=== PATIENT | female | born 1990 | race African-American/Black ===

== ENCOUNTER 2016-09-28 20:03 | Emergency (ER) | payer OTHER ==
[~2016-09-28] VITALS: Ht 165.1 cm; Wt 61.6 kg
[~2016-09-28 20:03] MED LIST: ADVAIR 100/501 DISK; ADVAIR 100/501 DISK IH; ALBUTEROL SULF8.5 GM IH; ALBUTEROL17 GM IH; AMOXICILLIN500 MG PO; AMOXICILLIN875 MG PO; AUGMENTIN875 MG PO; AZITHROMYCIN250 MG PO; CITALOPRAM HBR10 MG PO; CLEOCIN150 MG PO; DAILY VALUE1 EACH PO; FLEXERIL10 MG PO; HYDROXYZINE PAM25 MG PO; KEFLEX500 MG PO; LEVAQUIN750 MG PO; LITHIUM CARBON150 MG PO; LITHIUM CARBON300 MG PO; NAPROSYN500 MG PO; NORCO 5/3251 TABLET PO; PEN-VEE K,VEET500 MG PO; PREDNISONE20 MG PO; PROAIR HFA8.5 GM IH; PROVENTIL,2.5 MG/3 M IH; ULTRAM50 MG PO; VENTOLIN HFA18 GM IH
[2016-09-28] MEDS ORDERED: MEDROL DOSEPAK4 MG PO (22:58)
[2016-09-28] MEDS ORDERED: VENTOLIN HFA18 GM IH (22:58)
[2016-09-28 23:09] VITALS: BP 118/66
== END 2016-09-28 23:09 | disposition home or self-care (01) ==
LOC: EME 20:03
DX: J20.9 Acute bronchitis, unspecified (principal); F16.10 Hallucinogen abuse, uncomplicated; F17.200 Nicotine dependence, unspecified, uncomplicated
CPT/HCPCS: 71020; 93005; 94640; 99281; 99284

== ENCOUNTER 2016-11-07 00:18 | Emergency (ER) | payer OTHER ==
[~2016-11-07] VITALS: Ht 167.6 cm; Wt 60.3 kg
[~2016-11-07 00:18] MED LIST changes: +MEDROL DOSEPAK4 MG PO
[2016-11-07 00:21] VITALS: BP 142/102
== END 2016-11-07 03:02 | disposition home or self-care (01) ==
LOC: EME 00:18
DX: S60.011A Contusion of right thumb without damage to nail, initial encounter (principal); Y04.0XXA Assault by unarmed brawl or fight, initial encounter; Z72.0 Tobacco use
CPT/HCPCS: 73130; 99281; 99283

== ENCOUNTER 2016-12-10 13:00 | Inpatient (IN) | payer OTHER ==
[~2016-12-10] VITALS: Ht 170.2 cm; Wt 65.0 kg
[2016-12-10 13:27] LABS: HEMATOCRIT 39.3 % (36.0-46.0); MCH 27.3 PG (29.0-34.0); MCHC 32.3 G/DL (30.0-36.0); MCV 84.3 FL (83-99); MEAN PLAT.VOLUME 9.2 uM^3 (9.5-12.4); PLATELET COUNT 408 K/uL (156-360); RBC DIS.WIDTH-CV 12.7 % (11.8-14.6); RBC DIS.WIDTH-SD 38.8 % (39-53); RED BLOOD COUNT 4.66 M/uL (3.80-5.20); WHITE BLOOD COUNT 5.6 K/uL (4.1-10.2)
[2016-12-10 13:35] LABS: CHLORIDE 107 mEq/L (99-109); POTASSIUM 3.7 mEq/L (3.7-5.4); SODIUM 141 mEq/L (136-147)
[2016-12-10 13:37] LABS: GLUCOSE 93 mg/dL (70-99)
[2016-12-10 13:39] LABS: ANION GAP 7 MEQ/L (2-14)
[2016-12-10 13:40] LABS: SERUM ETHYL ALCOHOL < 10 mg/dL
[2016-12-10 13:41] LABS: GFR ESTIMATE (CALCULATED) > 59 mL/min/
[2016-12-10 13:42] LABS: UREA NITROGEN (BUN) 13 mg/dL (9-23)
[2016-12-10 16:48] LABS: INTERNAL CONTROL VALID? YES
[2016-12-10 16:56] LABS: AMPHETAMINE NEGATIVE (500 ng/mL); BARBITURATES NEGATIVE (200 ng/mL); BENZODIAZEPINES NEGATIVE (150 ng/mL); COCAINE NEGATIVE (150 ng/mL); INTERNAL CONTROLS VALID? YES; METHADONE NEGATIVE (200 ng/mL); METHAMPHETAMINE NEGATIVE (500 ng/mL); OPIATES (MORPHINE) NEGATIVE (100 ng/mL); OXYCODONE NEGATIVE (100 ng/mL); PHENCYCLIDINE PRESUMPTIVE POSITIVE (25 ng/mL); PROPOXYPHENE NEGATIVE (300 ng/mL); THC CANNABINOIDS NEGATIVE (50 ng/mL); TRICYCLIC ANTIDEPRESSANTS NEGATIVE (300 ng/mL)
[2016-12-10 17:29] VITALS: BP 150/84
[2016-12-10] MEDS ORDERED: ARIPIPRAZOLE10 MG PO (17:40)
[2016-12-10] MEDS ORDERED: FLUOXETINE HCL20 MG PO (17:43)
[2016-12-10] MEDS ORDERED: LORAZEPAM0.5 MG PO (17:43)
[2016-12-10 18:22] VITALS: BP 150/84
[2016-12-11 07:27] VITALS: BP 132/60
[2016-12-11 15:49] VITALS: BP 133/60
[2016-12-12 07:52] VITALS: BP 122/74
== END 2016-12-12 12:31 | disposition home or self-care (01) | DRG 885 ==
LOC: EME 13:00 → EDOF 14:31 → 1WEST 14:31
PROVIDERS: Emergency Medicine
DX: F31.9 Bipolar disorder, unspecified (principal); R45.850 Homicidal ideations; Z91.14 Patient's other noncompliance with medication regimen; R45.851 Suicidal ideations; F19.10 Other psychoactive substance abuse, uncomplicated; F17.200 Nicotine dependence, unspecified, uncomplicated; J45.909 Unspecified asthma, uncomplicated
CPT/HCPCS: 80048; 84703; 85027; 90837; 97150 GO; 97165 GO; 99281; 99283; G0480